=== PATIENT | female | born 1995 | race Caucasian/White ===

== ENCOUNTER 2025-03-07 00:50 | Emergency (ER) | payer MEDICAID ==
[~2025-03-07] VITALS: Ht 157.5 cm; Wt 82.0 kg
[2025-03-07 00:56] VITALS: O2SAT 100
[2025-03-07] MEDS ORDERED: TERB250T88 MT (03:43)
[2025-03-07] MEDS ORDERED: TERB12CR TP (03:43)
[2025-03-07 03:50] VITALS: BP 122/98; PULSE 82; RESP 17; TEMP 36.7; O2SAT 100
== END 2025-03-07 03:55 | disposition home or self-care (01) ==
LOC: ER 00:50
DX: B35.3 Tinea pedis (principal); M79.672 Pain in left foot; M79.671 Pain in right foot
CPT/HCPCS: 99283